=== PATIENT | male | born 1995 | race Two or more races ===

== ENCOUNTER 2021-07-20 18:42 | Emergency (ER) | payer MEDICAID ==
[~2021-07-20] VITALS: Ht 170.2 cm; Wt 108.9 kg
--- NOTE | 2021-07-20 19:25 | NUR ---
PT BIB FROM HOME WITH C/O SORE THROAT, DIFFICULTY SWALLOWING SINCE YESTERDAY. PT WAS SENT [facility] TO R/O PERITONSILLAR ABSCESS. PT IS AAO X 4, BREATHING EVEN AND UNLABORED. PT ATTACHED TO MONITOR AND PULSE OX. WILL CONT TO MONITOR.
[2021-07-20] MEDS ORDERED: IBUP-1955 PO (19:39)
[2021-07-20] MEDS ORDERED: AMOX-430 PO (19:39)
[2021-07-20] MEDS ORDERED: KETOROLAC TROMETHAMINE INJ 60 MG/2 ML VIAL IM ONE ×2 (19:47→20:00)
[2021-07-20] MEDS ORDERED: DEXAMETHASONE SOD PHOSPHATE 10 MG/ML VIAL ONE (19:47)
[2021-07-20] MEDS ORDERED: AMOX/CLAVULANATE 875 MG TABLET ONE (19:48)
[2021-07-20] MEDS ORDERED: AMOX/CLAVULANATE 875 MG TABLET PO ONE (20:00)
[2021-07-20] MEDS ORDERED: DEXAMETHASONE SOD PHOSPHATE 4 MG/ML VIAL IM ONE (20:00)
--- NOTE | 2021-07-20 20:00 | NUR ---
Patient discharged to home in stable condition. Written and verbal after care instructions given. Patient verbalizes understanding of instruction. Jovanny is ambulatory with a steady gait
[2021-07-20 20:12] VITALS: BP 138/76
== END 2021-07-20 20:00 | disposition home or self-care (01) ==
LOC: ER 18:44
DX: J02.0 Streptococcal pharyngitis (principal); Z79.899 Other long term (current) drug therapy
CPT/HCPCS: 96372 ×2; 99284; J1100; J1885

== ENCOUNTER 2021-11-28 21:02 | Emergency (ER) | payer MEDICAID ==
[~2021-11-28] VITALS: Ht 167.6 cm; Wt 111.1 kg
[~2021-11-28 21:02] MED LIST: AMOX-430 PO; IBUP-1955 PO
--- NOTE | 2021-11-28 22:00 | NUR ---
BIBS C/O THROAT PAIN, SWELLING, DIFFICULTY BREATHING & SWALLOWING X 3 DAYS. AAOX4, BREATHIGN EVEN AND UNLABORED, NOT IN RESP DISTRESS. POX 99% ON RA.
[2021-11-28] MEDS ORDERED: KETOROLAC TROMETHAMINE INJ 30 MG/ML VIAL ONE (22:28)
[2021-11-28] MEDS ORDERED: PENICILLIN G BENZATHINE 2.4 MMU/4 ML ML IM ONE ×2 (22:29→22:30)
[2021-11-28] MEDS ORDERED: AMOXICILLIN TRIHYDRATE 500 MG CAPSULE PO ONE (22:30)
[2021-11-28] MEDS ORDERED: KETOROLAC TROMETHAMINE INJ 60 MG/2 ML VIAL IM ONE (22:30)
[2021-11-28] MEDS ORDERED: DEXAMETHASONE SOD PHOSPHATE 4 MG/ML VIAL IM ONE (22:30)
[2021-11-28] MEDS ORDERED: DEXAMETHASONE SOD PHOSPHATE 10 MG/ML VIAL ONE (22:30)
[2021-11-28] MEDS ORDERED: HYDR-4303 PO (22:32)
--- NOTE | 2021-11-28 23:02 | NUR ---
PT REFUSED TORADOL, SAYS HE DOES NOT HAVE PAIN.
--- NOTE | 2021-11-28 23:13 | NUR ---
Patient discharged to home in stable condition. Written and verbal after care instructions given. Patient verbalizes understanding of instruction.
[2021-11-28 23:14] VITALS: BP 130/79
== END 2021-11-28 23:14 | disposition home or self-care (01) ==
LOC: ER 21:04
DX: J03.90 Acute tonsillitis, unspecified (principal); Z87.728 Personal history of other specified (corrected) congenital malformations of nervous system and sense organs; Z79.891 Long term (current) use of opiate analgesic; Z79.899 Other long term (current) drug therapy
CPT/HCPCS: 96372 ×2; 99284; J0558; J1100; J1885

== ENCOUNTER 2022-02-27 19:46 | Emergency (ER) | payer MEDICAID ==
[~2022-02-27] VITALS: Ht 172.7 cm; Wt 111.1 kg
[~2022-02-27 19:46] MED LIST changes: +HYDR-4303 PO
--- NOTE | 2022-02-27 22:02 | NUR ---
TO ER BED 3. BIBS C/O L GROIN PAIN "PULLING SOMETHING AT WORK AROUND 10AM". PAIN WORSE WITH MOVEMENT. PAIN 4/10 ON P/S. PT DID NOT TAKE ANYTHING TO RELIEVE PAIN. CHANGED INTO GOWN. AWAITING MD DILLON.
--- NOTE | 2022-02-27 22:17 | NUR ---
DR. KIESHA RIVERA AT PT'S BEDSIDE
--- NOTE | 2022-02-27 22:29 | NUR ---
URINE SAMPLE COLLECTED AND SENT TO LAB
--- NOTE | 2022-02-27 22:36 | NUR ---
LAB AT BEDSIDE
[2022-02-27 23:02] LABS: BASOPHILS % (AUTO) 0.5 % (0.0-2.0); HEMATOCRIT 41 % (39-51); HEMOGLOBIN 13.9 g/dL (13.5-17.5); LYMPHOCYTES % (AUTO) 37.5 % (20.0-44.0); MEAN CORPUSCULAR HGB CONC 34 g/dl (31.0-36.0); MEAN CORPUSCULAR VOLUME 86 fL (80-96); MONOCYTES # (AUTO) 0.6 K/uL (0.1-1.30); MONOCYTES % (AUTO) 8.1 % (2.0-12.0); NEUTROPHILS % (AUTO) 50.9 % (43.0-81.0); PLATELET COUNT (AUTO) 295 K/uL (150-450); RED BLOOD CELL COUNT(AUTO) 4.74 MIL/uL (4.5-6.0); WHITE BLOOD COUNT (AUTO) 7.9 K/uL (4.3-11.0)
[2022-02-27 23:08] LABS: BILIRUBIN,URINE NEGATIVE (NEGATIVE); COLOR,URINE YELLOW (YELLOW); LEUKOCYTE ESTERASE ,URINE NEGATIVE (NEGATIVE); NITRITE, URINE NEGATIVE (NEGATIVE); PH,URINE 6.5 (5.0-8.0); PROTEIN,URINE NEGATIVE (NEGATIVE); UGLUCOSE NEGATIVE (NEGATIVE); UROBILINOGEN,URINE 0.2 EU/dL (0.2)
[2022-02-27 23:10] LABS: CALCIUM, SERUM 9.3 mg/dL (8.5-10.1); CREATININE 0.9 mg/dL (0.6-1.3); POTASSIUM 3.7 mmol/L (3.5-5.1)
[2022-02-27 23:16] LABS: ALBUMIN 4.2 g/dL (3.4-5.0); BILIRUBIN,DIRECT 0.1 mg/dL (0.0-0.2); BILIRUBIN,TOTAL 0.4 mg/dL (0.2-1.0); TOTAL PROTEIN, SERUM 7.3 g/dL (6.4-8.2)
[2022-02-28 01:05] VITALS: BP 112/60
== END 2022-02-28 01:06 | disposition home or self-care (01) ==
LOC: ER 19:52
DX: R10.30 Lower abdominal pain, unspecified (principal); Z90.89 Acquired absence of other organs; Z79.899 Other long term (current) drug therapy
CPT/HCPCS: 36415; 80048-TC; 80076-TC; 85025-TC